=== PATIENT | male | born 1960 | race Caucasian/White ===

== ENCOUNTER → 2021-02-02 | Outpatient (CLI) | payer OTHER ==
[~2021-02-02] VITALS: Ht 180.3 cm; Wt 108.0 kg
[~2021-02-02] MED LIST: ASA81BEC PO; FARXIGA5 MG PO; FLOMAX0.4 MG PO; LISINOPRIL20 MG PO; LOVASTATIN40 MG PO; METFORMIN HCL500 MG PO; NORVASC5 MG PO; OMEPRAZOLE 20 M20 M1 PO; TOUJEO SOL300 UNIT/1 SUBQ; WELCHOL 625 MG625 M1 PO
--- NOTE | 2021-02-04 21:09 | PATH ---
[facility] [place] [address] [address] PATHOLOGY RPT PROCEDURE Name: CONSTANCE TAO Room #: REG [facility].#: [id number] Admission: 02/02/21 Date of : 58 Discharge: Report #: [id number] Path Case #: [id number] [facility] Accession Number: [id number] . 01 Material submitted: . colon - TRANSVERSE COLON BIOPSY. Modifiers: transverse . 01 Clinical history: . COLONOSCOPY HX OF POLYPS . 02 Diagnosis: Transverse colon, endoscopic biopsy: - Sessile serrated polyp. - Negative for high grade dysplasia or malignancy. . (ANK:mml; 02/04/2021) QL 02/04/2021 [facility]2 Local . 02 Electronically signed: . Alicja Samuel MD, Pathologist NPI- [id number] . 01 Gross description: . Received in formalin labeled "Errol, Rahman, transverse colon BX" are multiple smiley-brown soft tissue fragments measuring in aggregate 0.6 x 0.4 x 0.1 cm. The specimen is submitted entirely in A1. [place] [place] [facility] 02/03/2021 1010 Local . 02 Pathologist provided ICD-10: K63.5 . 02 CPT . 984803 Specimen Comment: A courtesy copy of this report has been sent to [phone], [phone] Specimen Comment: [phone] Specimen Comment: Report sent to / DR ZAMUDIO Performed at: [address], [place], [place] [id number] MD Robert Bhatti MD Phone: [phone] Performed at: [address] [id number] MD Chapis Mane MD Phone: [phone]
--- NOTE | 2021-02-11 10:40 | P ---
[facility] [place] [address] [place] [address] PROCEDURE REPORT Name: CONSTANCE TAO Room #: REG ISABEL Lamberto#: [id number] Admission: 02/02/21 Attend Phys: Raphael Ansari Discharge: Date of : 58 Report #: [id number] THIS REPORT FOR: cc: David Ponce MD, John R. MD McElhinney, Christian C. MD ~ cc: David Ponce MD DATE OF SERVICE: 02/02/2021 PROCEDURE PERFORMED: Colonoscopy with biopsies. HISTORY OF PRESENT ILLNESS: The patient is a 60-year-old male with a family history of colon cancer. Last colonoscopy in 2015 was normal other than internal hemorrhoids. Plan is for repeat colonoscopy. DESCRIPTION OF PROCEDURE: The risks and benefits of the procedure were explained to the patient, those risks including but not limited to bleeding, perforation and the risk of sedation. He understood these risks and gave informed consent. Sedation was given using propofol per Anesthesia. Next, a digital rectal exam showed a perianal thickening, appears to be a sebaceous cyst, chronic, noninflamed, otherwise normal. Next, using a standard Olympus colonoscope, the scope was placed in the patient's anus and advanced under direct vision to the cecum. The overall prep was good. The cecum and ileocecal valve were normal in appearance. The ascending colon was normal. In the transverse colon, a 5 mm sessile polyp was noted. This was removed with cold forceps, otherwise normal. The descending and sigmoid colon were normal. The rectal mucosa was normal. On retroflexion, small nonbleeding internal hemorrhoids were noted. The scope was then withdrawn and the procedure terminated. The patient tolerated the procedure well. IMPRESSION: 1. Small colonic polyp. 2. Small internal hemorrhoids. 3. Perianal thickening. I suspect this is a sebaceous cyst, this was approximately 1 cm in size. There is no drainage or erythema. If this is bothersome to the patient, we would consider possible surgical excision. Thank you for allowing me to participate in his care. <ELECTRONICALLY SIGNED> By: Raphael Adrian MD 02/11/21 1040 [id number] [id number] Raphael Adrian MD /nt
== END | disposition home or self-care (01) ==
LOC: GI 08:08
PROVIDERS: ATTEND Specialist
DX: Z12.11 Encounter for screening for malignant neoplasm of colon (principal); Z80.0 Family history of malignant neoplasm of digestive organs; K62.89 Other specified diseases of anus and rectum; K63.5 Polyp of colon; K64.8 Other hemorrhoids; K21.9 Gastro-esophageal reflux disease without esophagitis; I10 Essential (primary) hypertension; E78.5 Hyperlipidemia, unspecified; E11.9 Type 2 diabetes mellitus without complications; Z98.890 Other specified postprocedural states; Z79.899 Other long term (current) drug therapy; Z79.4 Long term (current) use of insulin; Z87.891 Personal history of nicotine dependence
CPT/HCPCS: 62110; 62900